=== PATIENT | female | born 1940 | race Caucasian/White ===

== ENCOUNTER → 2018-03-07 | Outpatient (CLI) | payer MEDICARE, OTHER ==
[~2018-03-07] MED LIST: ASPI81CH PO; ESTR2 PO; HYDCHL12.5 PO; LISI20 PO; NEBI5 PO; Prinivil10 MG PO
== END ==
LOC: PLD 15:13 → LAB SHORT 15:13
DX: D22.4 Melanocytic nevi of scalp and neck (principal)
CPT/HCPCS: 88305

== ENCOUNTER → 2018-05-10 | Outpatient (CLI) | payer MEDICARE, OTHER | LOC: LAB SHORT 16:20 → LAB 16:20 | DX: R30.0 Dysuria (principal) | CPT/HCPCS: 87086 ==

== ENCOUNTER → 2018-08-08 | Outpatient (CLI) | payer MEDICARE, OTHER | LOC: LAB 16:45 → LAB SHORT 16:45 | DX: K12.0 Recurrent oral aphthae (principal) | CPT/HCPCS: 87252; 87254 ==

== ENCOUNTER → 2019-04-30 | Outpatient (CLI) | payer MEDICARE, OTHER | END | disposition home or self-care (01) | LOC: LAB SHORT 18:32 → LAB 18:32 | DX: R30.0 Dysuria (principal) | CPT/HCPCS: 87077; 87086; 87186 ==

== ENCOUNTER 2022-10-03 10:09 | Emergency (ER) | payer MEDICARE, OTHER ==
[~2022-10-03] VITALS: Ht 165.1 cm; Wt 77.1 kg
[2022-10-03] MEDS ORDERED: OMEP20ER PO (10:49)
[2022-10-03] MEDS ORDERED: AMLODIPINE BESYL5 MG PO (10:49)
[2022-10-03] MEDS ORDERED: CHLO25B PO (10:50)
[2022-10-03] MEDS ORDERED: LISI20 PO (10:50)
[2022-10-03] MEDS ORDERED: MELO7.5 PO (10:51)
[2022-10-03] MEDS ORDERED: CRUTCH2 XX (13:48)
[2022-10-03] MEDS ORDERED: HYDR1TAB94 PO (13:48)
== END 2022-10-03 14:11 | disposition home or self-care (01) ==
LOC: ER 10:09
DX: S82.832A Other fracture of upper and lower end of left fibula, initial encounter for closed fracture (principal); S82.302A Unspecified fracture of lower end of left tibia, initial encounter for closed fracture; I10 Essential (primary) hypertension; W00.0XXA Fall on same level due to ice and snow, initial encounter; Z88.2 Allergy status to sulfonamides; Z88.8 Allergy status to other drugs, medicaments and biological substances; Z79.899 Other long term (current) drug therapy; Z79.82 Long term (current) use of aspirin
CPT/HCPCS: 73600; 73610; J2250

== ENCOUNTER 2022-10-07 07:33 | Day surgery (SDC) | payer MEDICARE, OTHER ==
[~2022-10-07] VITALS: Ht 165.1 cm; Wt 78.4 kg
[~2022-10-07 07:33] MED LIST changes: +AMLODIPINE BESYL5 MG PO; +CHLO25B PO; +CRUTCH2 XX; +HYDR1TAB94 PO; +MELO7.5 PO; +OMEP20ER PO
[2022-10-07] MEDS ORDERED: DOCU100 PO (08:26)
[2022-10-07] MEDS ORDERED: HYDSUL200 PO (08:26)
[2022-10-07] MEDS ORDERED: ACET325 (08:27)
--- NOTE | 2022-10-07 09:03 | NUR ---
W/C inTO Day Surgery. PT STAND BY ASSIST TO SCALE. History, Chart, Medications and Allergies reviewed before start of procedure.Patient States Post-Procedure ride home has been arranged. Patient confirms NPO status and agrees with scheduled surgery. DR. GLOVER WAS IN TO SEE PT. LLE CAST REMOVED. SITE MARKED.
--- NOTE | 2022-10-07 11:52 | NUR ---
Discharge instructions reviewed with patient. Patient verbalizes understanding. Copy given to patient to take home. Discharged via wheelchair to private car for ride home.
== END 2022-10-07 22:44 | disposition home or self-care (01) ==
LOC: ORSCMMR 07:33 → ORD 09:15 → ORSCSDS 09:15 → ORSCMMR 22:44
PROVIDERS: Podiatrist Foot & Ankle Surgery
PROC: 0QSK04Z Reposition Left Fibula with Internal Fixation Device, Open Approach (ICD-10-PCS; principal; 2022-10-07 09:15)
DX: S82.62XA Displaced fracture of lateral malleolus of left fibula, initial encounter for closed fracture (principal); I10 Essential (primary) hypertension; K21.9 Gastro-esophageal reflux disease without esophagitis; Z79.899 Other long term (current) drug therapy; Z79.82 Long term (current) use of aspirin
CPT/HCPCS: A9270; C1713; C1769; J0690; J1100; J2405; J2704; J2710; J2795; J3010; J7120

== ENCOUNTER → 2024-07-01 | Outpatient (CLI) | payer OTHER ==
[~2024-07-01] MED LIST changes: +ACET325; +DOCU100 PO; +HYDSUL200 PO
== END | disposition home or self-care (01) ==
LOC: LAB SHORT 16:11 → LAB 16:11
DX: N30.90 Cystitis, unspecified without hematuria (principal)
CPT/HCPCS: 87077; 87086; 87186

== ENCOUNTER → 2024-09-10 | Outpatient (CLI) | payer OTHER ==
[2024-09-11 06:13] LABS: Adenovirus F 40/41 Not Detected (NOT DETECT); Astrovirus Not Detected (NOT DETECT); Campylobacter Sp Not Detected (NOT DETECT); Cryptosporidium Not Detected (NOT DETECT); Cyclospora Cayetanensis Not Detected (NOT DETECT); E. Coli O157 Not Detected (NOT DETECT); Entamoeba Histolytica Not Detected (NOT DETECT); Enteroaggregative E. coli-EAEC Not Detected (NOT DETECT); Enteropathogenic E. coli-EPEC Detected (NOT DETECT); Enterotoxigenic E. coli-ETEC Not Detected (NOT DETECT); Giardia Lamblia Not Detected (NOT DETECT); Norovirus GI/GII Not Detected (NOT DETECT); Plesiomonas Shigelloides Not Detected (NOT DETECT); Rotavirus A Not Detected (NOT DETECT); Salmonella Sp Not Detected (NOT DETECT); Sapovirus Not Detected (NOT DETECT); Shiga Toxin-prod E. coli-STEC Not Detected (NOT DETECT); Shigella/Enteroin E. coli-EIEC Not Detected (NOT DETECT); Vibrio Cholerae Not Detected (NOT DETECT); Vibrio Sp Not Detected (NOT DETECT); Yersinia Enterocolitica Not Detected (NOT DETECT)
[2024-09-13 08:37] LABS: CALPROTECTIN,FECAL 159 ug/g (<=49)
[2024-09-13 09:24] LABS: PANCREATIC ELASTASE,FECAL 422 ug/g (>=100)
== END | disposition home or self-care (01) ==
LOC: LAB 11:00 → LAB SHORT 11:00
PROVIDERS: Nurse Practitioner Family
DX: K52.9 Noninfective gastroenteritis and colitis, unspecified (principal); R63.4 Abnormal weight loss
CPT/HCPCS: 82653; 83993; 87507

== ENCOUNTER 2025-01-08 11:14 | Day surgery (SDC) | payer OTHER ==
[~2025-01-08] VITALS: Ht 165.1 cm; Wt 65.1 kg
[~2025-01-08 11:14] MED LIST changes: +Lactated Ringer's 1,000 ML IV ONE; +propofoL 50 ML IV ONE
[2025-01-08] MEDS ORDERED: Lactated Ringer's 1,000 ML IV ONE (13:04)
[2025-01-08] MEDS ORDERED: TRAZ50 (13:07)
[2025-01-08] MEDS ORDERED: ROSUVASTATIN CAL5 MG (13:08)
[2025-01-08] MEDS ORDERED: TIMO.5OPSO (13:08)
[2025-01-08 15:19] VITALS: BP 118/51
== END 2025-01-08 15:10 | disposition home or self-care (01) ==
LOC: ORSCSDS 11:14
PROVIDERS: Internal Medicine Gastroenterology
PROC: 0DBE8ZX Excision of Large Intestine, Via Natural or Artificial Opening Endoscopic, Diagnostic (ICD-10-PCS; principal; 2025-01-08 12:45)
PROC: 0DBL8ZX Excision of Transverse Colon, Via Natural or Artificial Opening Endoscopic, Diagnostic (ICD-10-PCS; principal; 2025-01-08 12:45)
PROC: 0DB98ZX Excision of Duodenum, Via Natural or Artificial Opening Endoscopic, Diagnostic (ICD-10-PCS; principal; 2025-01-08 12:45)
PROC: 0DBP8ZX Excision of Rectum, Via Natural or Artificial Opening Endoscopic, Diagnostic (ICD-10-PCS; principal; 2025-01-08 12:45)
PROC: 0DBH8ZX Excision of Cecum, Via Natural or Artificial Opening Endoscopic, Diagnostic (ICD-10-PCS; principal; 2025-01-08 12:45)
PROC: 0DB78ZX Excision of Stomach, Pylorus, Via Natural or Artificial Opening Endoscopic, Diagnostic (ICD-10-PCS; principal; 2025-01-08 12:45)
DX: R19.7 Diarrhea, unspecified (principal); R14.3 Flatulence; K21.9 Gastro-esophageal reflux disease without esophagitis; R10.13 Epigastric pain; D12.0 Benign neoplasm of cecum; K63.89 Other specified diseases of intestine; D12.3 Benign neoplasm of transverse colon; K62.1 Rectal polyp; K64.4 Residual hemorrhoidal skin tags; I10 Essential (primary) hypertension; E78.5 Hyperlipidemia, unspecified; Z79.899 Other long term (current) drug therapy
CPT/HCPCS: 88305; 88342; J2704; J7120